=== PATIENT | male | born 1955 | race Caucasian/White ===

== ENCOUNTER 2021-03-19 06:31 | Emergency (ER) | payer SELFPAY ==
[2021-03-19] MEDS ORDERED: Orphenadrine 60 MG/2 ML Inj IM ONE (07:20)
[2021-03-19] MEDS ORDERED: Ketorolac 30 MG/ML SDV IM ONE (07:20)
[2021-03-19] MEDS ORDERED: Dexamethasone 4 MG/ML SDV IM ONE (07:20)
[2021-03-19] MEDS ORDERED: Sodium Chloride 0.9% 1,000 ML IV ONE (07:54)
[2021-03-19 08:34] LABS: ANION GAP 14.7 mEq/L (7-13)
--- NOTE | 2021-03-19 08:36 | EDM.PDOC ---
ED HPI GENERAL MEDICAL PROBLEM - General Chief Complaint: Back Pain or Injury Stated Complaint: [id number] PAIN IN BACK Time Seen by Provider: 03/19/21 07:15 Source of Information: Reports: Patient, Family, RN, RN Notes Reviewed History Limitations: Reports: No Limitations - History of Present Illness INITIAL COMMENTS - FREE TEXT/NARRATIVE: Patient is a 66-year-old male who presents to ER with complaint of mid to lower back pain/flank pain. Patient states he was moving some furniture earlier in the week. States he went to his chiropractor who told him he was too tight to b e able to do anything to help him. He was sent to the clinic from there. Patient was given a steroid, and told he was given something for pain at that time as well. Patient continues to have pain. Was started on a Medrol Dosepak and yesterday took 3 of the 6 pills that were required for that dose. Patient states he has had kidney stones in the past but states he had surgery and did not think he ever have kidney stones again. He states this does not feel the same as when he had kidney stones. Patient states approximately 1:00 this morning he did get up to use the restroom having quite a bit of pain, did notice that there was a discoloration of his urine at that time. Denies any nausea or vomiting. Admits to feeling hot/cold from time to time, but unsure if fever. Onset: Gradual Lower Back Pain Score (Numeric/FACES): 8 - Related Data Allergies Allergy/AdvReac Type Severity Reaction Status Date / Time No Known Allergies Allergy Verified 03/19/21 07:02 Past Medical History - Past Health History Medical/Surgical History: Denies Medical/Surgical History Social & Family History - Tobacco Use Tobacco Use Status *Q: Former Tobacco User Used Tobacco, but Quit: Yes Month/Year Tobacco Last Used: 35 Second Hand Smoke Exposure: No - Caffeine Use Caffeine Use: Reports: Coffee - Recreational Drug Use Recreational Drug Use: No ED ROS GENERAL - Review of Systems Review Of Systems: Comprehensive ROS is negative, except as noted in HPI. ED EXAM,LOWER BACK PAIN/INJURY - Physical Exam Exam: See Below Exam Limited By: No Limitations General Appearance: Alert, WD/WN, Moderate Distress Eye Exam: Bilateral Eye: EOMI, Normal Inspection Ears: Normal External Exam, Hearing Grossly Normal Nose: Normal Inspection Throat/Mouth: Normal Inspection, Normal Voice, No Airway Compromise Head: Atraumatic, Normocephalic Neck: Normal Inspection, Supple, Non-Tender, Full Range of Motion Respiratory/Chest: No Respiratory Distress, Lungs Clear, No Accessory Muscle Use, Chest Non-Tender, Decreased Breath Sounds Cardiovascular: Normal Peripheral Pulses, Regular Rate, Rhythm, No Edema, No Gallop, No JVD, No Murmur, No Rub GI/Abdominal: Normal Bowel Sounds, Soft, Non-Tender, No Organomegaly, No Distention, No Abnormal Bruit, No Mass, Pelvis Stable (Male) Exam: Deferred Rectal (Males) Exam: Deferred Back Exam: Normal Inspection, CVA Tenderness (L), CVA Tenderness (R), Decreased Range of Motion, Muscle Spasm Extremities: Normal Inspection, Normal Range of Motion, Non-Tender, No Pedal Edema, Normal Capillary Refill Neurological: Alert, Normal Mood/Affect, Normal Dorsiflexion, CN II-XII Intact, Normal Plantar Flexion, Normal Gait, Normal Reflexes, No Motor/Sensory Deficits, Oriented x 3 Psychiatric: Normal Affect, Normal Mood, Anxious Skin Exam: Warm, Dry, Intact, Normal Color, No Rash Lymphatic: No Adenopathy Course - Vital Signs Last Recorded V/S: Last Vital Signs Temp 97.6 F 03/19/21 06:57 Pulse 115 H 03/19/21 06:57 Resp 20 03/19/21 06:57 BP 150/93 H 03/19/21 06:57 Pulse Ox 98 03/19/21 06:57 - Orders/Labs/Meds Orders: Active Orders 24 hr Category Date Time Status CULTURE BLOOD [BC] Stat Lab 03/19/21 08:03 Received CULTURE BLOOD [BC] Stat Lab 03/19/21 08:10 Received CULTURE URINE [RM] Stat Lab 03/19/21 07:33 Results Blood Culture x2 Reflex Set [OM.PC] Stat Oth 03/19/21 07:51 Ordered Labs: Laboratory Tests 03/19/21 03/19/21 03/19/21 Range/Units 07:33 08:03 08:03 WBC 10.3 H (5.0-10.0) 10^3/uL RBC 4.69 (4.6-6.2) 10^6/uL Hgb 14.3 (14.0-18.0) g/dL Hct 42.0 (40.0-54.0) % MCV 89.6 (80-100) fL MCH 30.5 (27.0-34.0) pg MCHC 34.0 (33.0-35.0) g/dL Plt Count 191 (150-450) 10^3/uL Neut % (Auto) 80.9 H (42.2-75.2) % Lymph % (Auto) 8.6 L (20.5-50.1) % [place] % (Auto) 10.2 H (2-8) % Eos % (Auto) 0.2 L (1.0-3.0) % Baso % (Auto) 0.1 (0.0-1.0) % PT (9.0-12.0) SEC INR (0.9-1.2) Sodium 137 (136-145) mmol/L Potassium 3.7 (3.5-5.1) mmol/L Chloride 103 (98-107) mmol/L Carbon Dioxide 23 (21-32) mmol/L Anion Gap 14.7 H (7-13) mEq/L BUN 23 H (7-18) mg/dL Creatinine 1.49 H (0.70-1.30) mg/dL Est Cr Clr Drug Dosing 60.68 mL/min Estimated GFR (MDRD) 47 BUN/Creatinine Ratio 15.4 (No establ ref range) Glucose 112 H (70-99) mg/dL Lactic Acid (0.4-2.0) mmol/L Calcium 10.5 H (8.5-10.1) mg/dL Total Bilirubin 0.9 (0.2-1.0) mg/dL AST 13 L (15-37) U/L ALT 29 (16-63) U/L Alkaline Phosphatase 67 (46-116) U/L C-Reactive Protein 9.9 H (0.0-0.9) mg/dL Total Protein 7.1 (6.4-8.2) g/dL Albumin 3.0 L (3.4-5.0) g/dL Globulin 4.1 Albumin/Globulin Ratio 0.73 Urine Color Dark yellow (YELLOW) Urine Appearance Cloudy (CLEAR) Urine pH 5.5 (5.0-9.0) Ur Specific [place] 1.025 (1.005-1.030) Urine Protein 100 H (NEGATIVE) Urine Glucose (UA) Negative (NEGATIVE) Urine Ketones 40 H (NEGATIVE) Urine Occult Blood Large H (NEGATIVE) Urine Nitrite Negative (NEGATIVE) Urine Bilirubin Negative (NEGATIVE) Urine Urobilinogen 0.2 (0.2-1.0) mg/dL Ur Leukocyte Esterase Small H (NEGATIVE) Urine RBC Packed H /HPF Urine WBC 40-50 H (0-5/HPF) /HPF Ur Epithelial Cells Few (NOT SEEN) /HPF Urine Bacteria Moderate H (0-FEW/HPF) /HPF 03/19/21 03/19/21 Range/Units 08:03 10:47 WBC (5.0-10.0) 10^3/uL RBC (4.6-6.2) 10^6/uL Hgb (14.0-18.0) g/dL Hct (40.0-54.0) % MCV (80-100) fL MCH (27.0-34.0) pg MCHC (33.0-35.0) g/dL Plt Count (150-450) 10^3/uL Neut % (Auto) (42.2-75.2) % Lymph % (Auto) (20.5-50.1) % [place] % (Auto) (2-8) % Eos % (Auto) (1.0-3.0) % Baso % (Auto) (0.0-1.0) % PT 10.2 (9.0-12.0) SEC INR 1.0 (0.9-1.2) Sodium (136-145) mmol/L Potassium (3.5-5.1) mmol/L Chloride (98-107) mmol/L Carbon Dioxide (21-32) mmol/L Anion Gap (7-13) mEq/L BUN (7-18) mg/dL Creatinine (0.70-1.30) mg/dL Est Cr Clr Drug Dosing mL/min Estimated GFR (MDRD) BUN/Creatinine Ratio (No establ ref range) Glucose (70-99) mg/dL Lactic Acid 0.6 (0.4-2.0) mmol/L Calcium (8.5-10.1) mg/dL Total Bilirubin (0.2-1.0) mg/dL AST (15-37) U/L ALT (16-63) U/L Alkaline Phosphatase (46-116) U/L C-Reactive Protein (0.0-0.9) mg/dL Total Protein (6.4-8.2) g/dL Albumin (3.4-5.0) g/dL Globulin Albumin/Globulin Ratio Urine Color (YELLOW) Urine Appearance (CLEAR) Urine pH (5.0-9.0) Ur Specific [place] (1.005-1.030) Urine Protein (NEGATIVE) Urine Glucose (UA) (NEGATIVE) Urine Ketones (NEGATIVE) Urine Occult Blood (NEGATIVE) Urine Nitrite (NEGATIVE) Urine Bilirubin (NEGATIVE) Urine Urobilinogen (0.2-1.0) mg/dL Ur Leukocyte Esterase (NEGATIVE) Urine RBC /HPF Urine WBC (0-5/HPF) /HPF Ur Epithelial Cells (NOT SEEN) /HPF Urine Bacteria (0-FEW/HPF) /HPF Meds: Medications Discontinued Medications Generic Name Dose Route Start Last Admin Trade Name Freq PRN Reason Stop Dose Admin Dexamethasone 8 mg 03/19/21 07:20 03/19/21 07:29 Dexamethasone 4 Mg/Ml Sdv IM 03/19/21 07:21 8 mg ONETIME ONE Administration Sodium Chloride 1,000 mls @ 999 mls/hr 03/19/21 07:54 03/19/21 08:25 Normal Saline IV 03/19/21 08:54 999 mls/hr .BOLUS ONE Administration Ketorolac Tromethamine 30 mg 03/19/21 07:20 03/19/21 07:29 Ketorolac 30 Mg/Ml Sdv IM 03/19/21 07:21 30 mg ONETIME ONE Administration Orphenadrine Citrate 60 mg 03/19/21 07:20 03/19/21 07:29 Orphenadrine 60 Mg/2 Ml Inj IM 03/19/21 07:21 60 mg ONETIME ONE Administration - Radiology Interpretation Free Text/Narrative:: CT Abdomen/Pelvis wo contrast: See rad report - Re-Assessments/Exams Free Text/Narrative Re-Assessment/Exam: 03/19/21 08:38 IM Toradol, Norflex, dexamethasone given, patient states some improvement in pain. 03/19/21 10:55 Discussed patient case with Dr. Chin, urologist at [facility] in [place] who states the patient will need bilateral nephrostomy tubes. Patient case then discussed with Dr. Richard interventional radiologist who agreed to accept the patient for intervention. Patient refusing to transfer by ambulance due to lack of insurance. Patient informed that he will have to sign AGAINST MEDICAL ADVICE and go POV directly to [place]. Patient and state understanding. Departure - Departure Time of Disposition: 11:58 Disposition: DC/Tfer to [facility] 02 Condition: Fair Clinical Impression: Obstruction of kidney, Kidney stone - Discharge Information *PRESCRIPTION DRUG MONITORING PROGRAM REVIEWED*: No *COPY OF PRESCRIPTION DRUG MONITORING REPORT IN PATIENT IVONNE: No Referrals: PCP,Unobtain [Primary Care Provider] - Forms: ED Department Discharge, Interfacility Transfer [facility] Sepsis Event Note (ED) - Evaluation Sepsis Screening Result: No Definite Risk - My Orders Last 24 Hours: My Active Orders 03/19/21 07:33 CULTURE URINE [RM] Stat 03/19/21 07:51 Blood Culture x2 Reflex Set [OM.PC] Stat 03/19/21 08:03 CULTURE BLOOD [BC] Stat 03/19/21 08:10 CULTURE BLOOD [BC] Stat - Assessment/Plan Last 24 Hours: My Active Orders 03/19/21 07:33 CULTURE URINE [RM] Stat 03/19/21 07:51 Blood Culture x2 Reflex Set [OM.PC] Stat 03/19/21 08:03 CULTURE BLOOD [BC] Stat 03/19/21 08:10 CULTURE BLOOD [BC] Stat
--- NOTE | 2021-03-19 09:13 | CT ---
PROCEDURE INFORMATION: Exam: CT Abdomen And Pelvis Without Contrast Exam date and time: 03/19/2021 8:12 AM Age: 66 years old Clinical indication: Abdominal pain; Other: Back/ flank pain; Patient HX: HX kidney stones; Additional info: Back/flank pain, rbc in urine TECHNIQUE: Imaging protocol: Computed tomography of the abdomen and pelvis without contrast. Radiation optimization: All CT scans at this facility use at least one of these dose optimization techniques: automated exposure control; mA and/or kV adjustment per patient size (includes targeted exams where dose is matched to clinical indication); or iterative reconstruction. COMPARISON: CT RENAL STONE STUDY 06/15/2013 3:44 PM FINDINGS: Limitations: Evaluation of the solid and vascular structures is somewhat limited by lack of IV contrast. Lungs: There is mild atelectasis at the left lung base. Liver: The liver is now fatty in density. It appears otherwise grossly unremarkable. Gallbladder and bile ducts: Multiple stones are again present in the gallbladder. Pancreas: Grossly unremarkable. Spleen: Splenules are again present. The spleen itself appears grossly unremarkable. Adrenal glands: Grossly unremarkable. Kidneys and ureters: Both kidneys contain simple appearing cysts, measuring up to 3.0 cm on the right and 2.1 cm on the left. The right kidney is mildly atrophic with some thinning of the interpolar cortex. There is moderate to marked bilateral hydroureteronephrosis. Nonobstructing stones in the right renal collecting system measure up to 4 mm, and there is a cast of stones in the proximal to mid right ureter, with largest and distal most stone measuring 1.5 x 1.8 x 3.4 cm. Beyond this, the ureter is not dilated, and no additional ureteral calculus is identified. Multiple stones are present in the proximal to mid left ureter, largest and most distal measuring 1.6 x 1.3 x 1.0 cm. Beyond this, the ureter is not dilated, and no additional ureteral calculus is identified. Stomach and bowel: The unopacified small bowel is not significantly distended to suggest obstruction. The large bowel is grossly unremarkable in appearance. Appendix: The appendix appears normal. Intraperitoneal space: No free air or significant free fluid. Vasculature: The abdominal aorta is nonaneurysmal. Atherosclerotic vascular calcifications are again present. Lymph nodes: No gross pathologic lymphadenopathy. Urinary bladder: The urinary bladder now contains multiple stones, largest of which is on the right, adjacent to the right ureterovesical junction, measuring 2.5 x 2.6 x 1.9 cm. Additional stone is present at the expected level of the urethral orifice, and measures 2.1 x 1.3 x 1.0 cm. Reproductive: The prostate is increasingly enlarged, now measuring 7.8 x 7.8 cm (previously 6.6 x 6.0 cm). Bones/joints: Degenerative changes again involve the spine and hips. Soft tissues: Small fat containing umbilical and bilateral inguinal hernias are again present. There is a lobulated soft tissue mass in the right mid abdomen which has enlarged from approximately 5.3 x 3.3 x 3.7 cm on the prior study to 7.8 x 5.0 x 5.1 cm presently (images 3:52, 2:99). IMPRESSION: 1. Lobulated soft tissue lesion in the right mesentery, slowly growing as compared with 06/15/13. This is nonspecific and could represent a vascular lesion, retractile mesenteritis, lymphadenopathy or other pathology such as metastasis. Recommend follow-up with a contrast-enhanced exam to exclude vascular lesion, and consider biopsy and/or PET. 2. Moderate to marked bilateral hydroureteronephrosis with bilateral renal and ureteral stones, with largest ureteral stones measuring up to 3.4 cm on the right and 1.6 cm on the left, beyond which the ureters are not dilated. 3. Stones in the urinary bladder as described. 4. Increasing prostatomegaly. 5. Persistent cholelithiasis. 6. New hepatic steatosis. COMMENTS: Consistent with the [employer]'s Incidental Findings Committee white paper (J Am Stewart Radiol 2018): Any incidental renal lesion less than 1 cm or classified as too small to characterize, or any incidental cystic renal lesion characterized as simple-appearing, is likely benign. No follow-up imaging is recommended for these lesions per consensus recommendations based on imaging criteria.
== END 2021-03-19 12:00 ==
LOC: DL.ED 06:31
DX: N20.0 Calculus of kidney (principal); N28.89 Other specified disorders of kidney and ureter; Z87.891 Personal history of nicotine dependence
CPT/HCPCS: 36415; 74176; 80053; 81001; 83605; 85025; 85610; 86140; 87040; 87086; 96372; 99284; 99285; J1100; J1885; J2360; J7030

== ENCOUNTER 2021-04-16 17:41 | Emergency (ER) | payer BC ==
--- NOTE | 2021-04-16 18:08 | EDM.PDOC ---
<Omar Schaeffer - Last Filed: 04/16/21 19:09> ED HPI GENERAL MEDICAL PROBLEM - General Stated Complaint: POST SURGERY PROBLEMS Time Seen by Provider: 04/16/21 17:55 Source of Information: Reports: Patient History Limitations: Reports: No Limitations - History of Present Illness INITIAL COMMENTS - FREE TEXT/NARRATIVE: This 66 yo male patient reports to the ED with diffuse right sided back pain and the urge to urinate. The patient recently had surgery to remove numerous kidney stones through [facility] in [place]. The patient was released from [place] today at noon. The patient reports he has been drinking water as directed (1 bottle of water every hour), but the patient has not had any fluid coming out of his nephrostomy tubes. The patient reports the tube on the left side has not ever been draining, but the right tube has been draining until today. The patient reports they did surgery on his right side and removed one large stone. The patient reports the urge to both urinate and have a bowel movement. The patient has not taken any of the pain medications as prescribed. The patient reports increased pain and a flushed feeling with the surges of pain. Onset: Today Duration: Constant Location: Reports: Abdomen, Back Quality: Reports: Ache, Sharp Severity: Severe Improves with: Reports: None Worsens with: Reports: None Context: Reports: Other Associated Symptoms: Reports: No Other Symptoms Right Lower Flank Pain Score (Numeric/FACES): 8 - Related Data Allergies Allergy/AdvReac Type Severity Reaction Status Date / Time No Known Allergies Allergy Verified 04/18/21 15:52 Home Meds: Home Meds amLODIPine [Norvasc] 10 mg PO DAILY 04/16/21 [History] Cefdinir [Omnicef] 300 mg PO BID 7 Days #14 cap 04/17/21 [Rx] Phenazopyridine HCl [Pyridium] 200 mg PO DAILY PRN #21 tablet 04/17/21 [Rx] Tamsulosin [Tamsulosin 24 Hr] 0.4 mg PO DAILY #14 cap.er 04/17/21 [Rx] Past Medical History - Past Health History Medical/Surgical History: Denies Medical/Surgical History Social & Family History - Caffeine Use Caffeine Use: Reports: Coffee ED ROS GENERAL - Review of Systems Review Of Systems: Comprehensive ROS is negative, except as noted in HPI. ED EXAM, RENAL/ - Physical Exam Exam: See Below Exam Limited By: No Limitations General Appearance: Alert, WD/WN, Moderate Distress Eye Exam: Bilateral Eye: EOMI, Normal Inspection, PERRL Ears: Normal External Exam, Normal Canal, Hearing Grossly Normal, Normal TMs Nose: Normal Inspection, Normal Mucosa, No Blood Throat/Mouth: Normal Inspection, Normal Lips, Normal Teeth, Normal Gums, Normal Oropharynx, Normal Voice, No Airway Compromise Head: Atraumatic, Normocephalic Neck: Normal Inspection, Supple, Non-Tender, Full Range of Motion Respiratory/Chest: No Respiratory Distress, Lungs Clear, Normal Breath Sounds, No Accessory Muscle Use, Chest Non-Tender Cardiovascular: Normal Peripheral Pulses, Regular Rate, Rhythm, No Edema, No Gallop, No JVD, No Murmur, No Rub GI/Abdominal: Normal Bowel Sounds, Tender (diffuse) (Male) Exam: Deferred Rectal (Males) Exam: Deferred Back Exam: Normal Inspection, Full Range of Motion, NT Extremities: Normal Inspection, Normal Range of Motion, Non-Tender, Normal Capillary Refill, No Pedal Edema Neurological: Alert, Oriented, CN II-XII Intact, Normal Cognition, Normal Gait, Normal Reflexes, No Motor/Sensory Deficits Psychiatric: Normal Affect, Normal Mood Skin Exam: Warm, Dry, Intact, Normal Color, No Rash Lymphatic: No Adenopathy Course - Re-Assessments/Exams Free Text/Narrative Re-Assessment/Exam: 04/16/21 18:10 During the assessment, the patient's right nephrostomy tube was unwrapped. With no drainage, the tube was flushed with an immediate return of blood tinged fluid. The patient continued to report discomfort. Departure - Departure Disposition: Home, Self-Care 01 Clinical Impression: Kidney stone, Nephrostomy status, Acute urinary retention Hematuria Qualifiers: Hematuria type: gross Qualified Code(s): R31.0 - Gross hematuria UTI (urinary tract infection) Qualifiers: Urinary tract infection type: site unspecified Hematuria presence: with hematuria Qualified Code(s): N39.0 - Urinary tract infection, site not specified; R31.9 - Hematuria, unspecified Constipation Qualifiers: Constipation type: slow transit constipation Qualified Code(s): K59.01 - Slow transit constipation - Discharge Information Instructions: Indwelling Urinary Catheter Care, Adult, Urinary Tract Infection, Adult, [id number] Referrals: PCP,None [Primary Care Provider] - Forms: ED Department Discharge Additional Instructions: Follow up in ER tomorrow am for recheck push fluids urgent follow up severe pain, fever or vomiting senokot one tablet twice daily continue home medications oxycodone APAP 5/[address] Chni <Karen Jacobson - Last Filed: 04/18/21 20:56> Course - Vital Signs Last Recorded V/S: Last Vital Signs Temp 96.9 F 04/16/21 17:50 Pulse 130 H 04/16/21 17:50 Resp 28 H 04/16/21 17:50 BP 130/78 04/16/21 17:50 Pulse Ox 95 04/16/21 17:50 - Orders/Labs/Meds Labs: Laboratory Tests 04/16/21 04/16/21 04/16/21 Range/Units 20:29 20:40 20:40 WBC 18.6 H (5.0-10.0) 10^3/uL RBC 4.74 (4.6-6.2) 10^6/uL Hgb 14.1 (14.0-18.0) g/dL Hct 40.9 (40.0-54.0) % MCV 86.3 D (80-100) fL MCH 29.7 (27.0-34.0) pg MCHC 34.5 (33.0-35.0) g/dL Plt Count 396 D (150-450) 10^3/uL Neut % (Auto) 89.7 H (42.2-75.2) % Lymph % (Auto) 2.9 L (20.5-50.1) % [place] % (Auto) 7.3 (2-8) % Eos % (Auto) 0.0 L (1.0-3.0) % Baso % (Auto) 0.1 (0.0-1.0) % Sodium 134 L (136-145) mmol/L Potassium 3.6 (3.5-5.1) mmol/L Chloride 97 L (98-107) mmol/L Carbon Dioxide 20 L (21-32) mmol/L Anion Gap 20.6 H (7-13) mEq/L BUN 25 H (7-18) mg/dL Creatinine 2.59 H (0.70-1.30) mg/dL Est Cr Clr Drug Dosing 35.38 mL/min Estimated GFR (MDRD) 25 BUN/Creatinine Ratio 9.7 (No establ ref range) Glucose 200 H (70-99) mg/dL Lactic Acid (0.4-2.0) mmol/L Calcium 11.7 H (8.5-10.1) mg/dL Total Bilirubin 0.6 (0.2-1.0) mg/dL AST 14 L (15-37) U/L ALT 21 (16-63) U/L Alkaline Phosphatase 77 (46-116) U/L Total Protein 8.0 (6.4-8.2) g/dL Albumin 3.2 L (3.4-5.0) g/dL Globulin 4.8 Albumin/Globulin Ratio 0.67 Urine Color [place] (YELLOW) Urine Appearance Turbid (CLEAR) Urine pH 7.0 (5.0-9.0) Ur Specific [place] 1.020 (1.005-1.030) Urine Protein >=300 H (NEGATIVE) Urine Glucose (UA) Negative (NEGATIVE) Urine Ketones Negative (NEGATIVE) Urine Occult Blood Large H (NEGATIVE) Urine Nitrite Negative (NEGATIVE) Urine Bilirubin Negative (NEGATIVE) Urine Urobilinogen 0.2 (0.2-1.0) mg/dL Ur Leukocyte Esterase Small H (NEGATIVE) Urine RBC >100 H /HPF Urine WBC >100 H (0-5/HPF) /HPF Ur Epithelial Cells Few (NOT SEEN) /HPF Amorphous Sediment Moderate (NOT SEEN) /HPF Urine Bacteria Many H (0-FEW/HPF) /HPF Urine Mucus Rare (NOT SEEN) /LPF 04/16/21 Range/Units 21:51 WBC (5.0-10.0) 10^3/uL RBC (4.6-6.2) 10^6/uL Hgb (14.0-18.0) g/dL Hct (40.0-54.0) % MCV (80-100) fL MCH (27.0-34.0) pg MCHC (33.0-35.0) g/dL Plt Count (150-450) 10^3/uL Neut % (Auto) (42.2-75.2) % Lymph % (Auto) (20.5-50.1) % [place] % (Auto) (2-8) % Eos % (Auto) (1.0-3.0) % Baso % (Auto) (0.0-1.0) % Sodium (136-145) mmol/L Potassium (3.5-5.1) mmol/L Chloride (98-107) mmol/L Carbon Dioxide (21-32) mmol/L Anion Gap (7-13) mEq/L BUN (7-18) mg/dL Creatinine (0.70-1.30) mg/dL Est Cr Clr Drug Dosing mL/min Estimated GFR (MDRD) BUN/Creatinine Ratio (No establ ref range) Glucose (70-99) mg/dL Lactic Acid 1.8 (0.4-2.0) mmol/L Calcium (8.5-10.1) mg/dL Total Bilirubin (0.2-1.0) mg/dL AST (15-37) U/L ALT (16-63) U/L Alkaline Phosphatase (46-116) U/L Total Protein (6.4-8.2) g/dL Albumin (3.4-5.0) g/dL Globulin Albumin/Globulin Ratio Urine Color (YELLOW) Urine Appearance (CLEAR) Urine pH (5.0-9.0) Ur Specific [place] (1.005-1.030) Urine Protein (NEGATIVE) Urine Glucose (UA) (NEGATIVE) Urine Ketones (NEGATIVE) Urine Occult Blood (NEGATIVE) Urine Nitrite (NEGATIVE) Urine Bilirubin (NEGATIVE) Urine Urobilinogen (0.2-1.0) mg/dL Ur Leukocyte Esterase (NEGATIVE) Urine RBC /HPF Urine WBC (0-5/HPF) /HPF Ur Epithelial Cells (NOT SEEN) /HPF Amorphous Sediment (NOT SEEN) /HPF Urine Bacteria (0-FEW/HPF) /HPF Urine Mucus (NOT SEEN) /LPF Meds: Medications Discontinued Medications Generic Name Dose Route Start Last Admin Trade Name Freq PRN Reason Stop Dose Admin Hydromorphone HCl 1 mg 04/16/21 19:17 04/16/21 19:26 Hydromorphone 1 Mg/Ml Syringe IVPUSH 04/16/21 19:18 1 mg ONETIME ONE Administration Ceftriaxone Sodium 2 gm/ 50 mls @ 100 mls/hr 04/16/21 21:44 04/16/21 22:03 Sodium Chloride IV 04/16/21 22:13 100 mls/hr ONETIME ONE Administration Ondansetron HCl 4 mg 04/16/21 19:17 04/16/21 19:26 Ondansetron 4 Mg/2 Ml Sdv IVPUSH 04/16/21 19:18 4 mg ONETIME ONE Administration - Re-Assessments/Exams Free Text/Narrative Re-Assessment/Exam: Denney Catheter placed due to inability to void with bladder distension, 800ml dark tea colored urine. Improvement in voiding urgency and pain. Right neph rostomy draining bloody urine. TC Dr Chin. [facility] urology. No bed availability for tx. Recommend Rocephin tonight and follow up ED in am with repeat lab, CBC BMP. Patient agreeable. Home with catheter. Instructed to follow up if worsening symptoms of pain fever or tubes not draining. Catheter care reviewed by RN. Encouraged to utilize pain medication and to take with senokot to alleviate complications with constipation. Continue to push fluids. Departure - Departure Time of Disposition: 22:23 Condition: Fair - Discharge Information *PRESCRIPTION DRUG MONITORING PROGRAM REVIEWED*: No *COPY OF PRESCRIPTION DRUG MONITORING REPORT IN PATIENT IVONNE: No
[2021-04-16] MEDS: Ondansetron 4 MG/2 ML SDV IVPUSH ONE (19:26)
[2021-04-16] MEDS: HYDROmorphone 1 MG/ML Syringe IVPUSH ONE (19:26)
--- NOTE | 2021-04-16 19:37 | CT ---
PROCEDURE INFORMATION: Exam: CT Abdomen And Pelvis Without Contrast Exam date and time: 04/16/2021 6:53 PM Age: 66 years old Clinical indication: Prior surgery; Surgery date: Post-operative (0-2 days); Surgery type: Nephrostomy tubes put in yesterday; Patient HX: On pain medications, no stool softeners, no recent bowel movements; Additional info: Nephrostomy tubes with little output TECHNIQUE: Imaging protocol: Computed tomography of the abdomen and pelvis without contrast. Radiation optimization: All CT scans at this facility use at least one of these dose optimization techniques: automated exposure control; mA and/or kV adjustment per patient size (includes targeted exams where dose is matched to clinical indication); or iterative reconstruction. COMPARISON: CT Abdomen Pelvis wo Cont 03/19/2021 8:12 AM FINDINGS: Lungs: The visualized lung bases are clear. Liver: The liver is normal. Gallbladder and bile ducts: Multiple gallstones are identified. Pancreas: The pancreas is normal. Spleen: The spleen is normal. Adrenal glands: The adrenal glands are normal. Kidneys and ureters: Status post right nephrostomy tube placement. Right nephrostomy tube appears to be appropriately positioned in the renal pelvis. There is air in the collecting system. There is decreased right hydronephrosis. There is moderate perirenal hematoma on the right anteriorly. Blood product surrounds the previously identified right right anterior cyst. There is a spherical area of increased density in the lower pole of the right kidney. This measures 6 cm. This may reflect hematoma in the lower pole of the right kidney. No cystic lesion is seen in this area previously. There multiple calcifications in the right renal pelvis . There is a large amount of calcific material in the proximal right ureter. Several small calculi of migrated to the distal right ureter just above the UVJ. Status post left nephrostomy tube placement. There is persistent though decreased moderate left hydronephrosis. Very little perirenal stranding on the left. Large amount of calcific material in the proximal left ureter is unchanged. The distal left ureter is relatively decompressed. Stomach and bowel: Non-specific/nonobstructive intestinal gas pattern. No specific small bowel or colonic abnormality is identified. The upper GI tract is normal. Appendix: A normal appendix is identified. 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 Vasculature: There is no aortic aneurysm. Lymph nodes: There is no adenopathy. Urinary bladder: The bladder is moderately distended. Multiple bladder calculi present largest measuring 26 mm. Pattern stable. Reproductive: Prostate is severely enlarged. There is prostatic calcification. Bones/joints: No acute bony findings are identified. Soft tissues: There is no soft tissue abnormality seen. IMPRESSION: 1. Status post bilateral nephrostomy tube placement. Right hydronephrosis is essentially resolved. There is moderate though decreased left hydronephrosis. 2. There multiple renal calculi identified bilaterally there is extensive calcific material in the ureters. 3. There is air in the right collecting system . There is a moderate perirenal hematoma about the right kidney. There is a new spherical intermediate density lesion in the lower pole of the right kidney measuring up to 6 cm, likely hematoma. Correlate with any history of percutaneous stone extraction. Several proximal right ureteral calculi have migrated to the distal right ureter. 4. The urinary bladder is distended. There are multiple bladder calculi seen. 5. Lobular right-sided mesenteric mass will require further evaluation. This appears to be slowly grown over time, question low-grade malignancy. Consider PET-CT. Consider biopsy/excision. COMMENTS: Consistent with the [employer]'s Incidental Findings Committee white paper (J Am Stewart Radiol 2018): Any incidental renal lesion less than 1 cm or classified as too small to characterize, or any incidental cystic renal lesion characterized as simple-appearing, is likely benign. No follow-up imaging is recommended for these lesions per consensus recommendations based on imaging criteria.
[2021-04-16 21:04] LABS: ANION GAP 20.6 mEq/L (7-13)
[2021-04-16] MEDS: cefTRIAXone 2 GM in Sodium Chloride 0.9% 50 ML IV ONE (22:03)
== END 2021-04-16 22:47 | disposition home or self-care (01) ==
LOC: DL.ED 17:41
DX: N13.2 Hydronephrosis with renal and ureteral calculous obstruction (principal); N39.0 Urinary tract infection, site not specified; R33.9 Retention of urine, unspecified; K59.01 Slow transit constipation; R31.0 Gross hematuria; Z93.6 Other artificial openings of urinary tract status
CPT/HCPCS: 36415; 51702; 74176; 80053; 81001; 83605; 85025; 87040; 87086; 96365; 96375; 99284; J0696; J1170; J2405

== ENCOUNTER 2021-04-17 08:26 | Emergency (ER) | payer BC ==
[2021-04-17] MEDS ORDERED: cefTRIAXone 1 GM in Sodium Chloride 0.9% 50 ML IV ONE (08:30)
[2021-04-17] MEDS ORDERED: cefTRIAXone 1 GM Vial ONE (08:41)
[2021-04-17] MEDS ORDERED: Lidocaine 1% 30 ML SDV ONE (08:42)
[2021-04-17 08:58] LABS: ANION GAP 16.4 mEq/L (7-13)
--- NOTE | 2021-04-17 10:43 | EDM.PDOC ---
ED HPI GENERAL MEDICAL PROBLEM - General Chief Complaint: Genitourinary Problem Stated Complaint: POST SURGERY ISSUES Time Seen by Provider: 04/17/21 08:30 - History of Present Illness INITIAL COMMENTS - FREE TEXT/NARRATIVE: Ramin is a 66 year old man who presents for recheck of his UTI. He has obstructing nephrolithiasis, and recently had nephrostomy tubes placed. He was diagnosed yesterday with a UTI, and given IV ceftriaxone. This morning he is feeling better, but rubi catheter came out on its own this morning. reports no further fevers - Related Data Allergies Allergy/AdvReac Type Severity Reaction Status Date / Time No Known Allergies Allergy Verified 04/17/21 18:40 Home Meds: Home Meds amLODIPine [Norvasc] 10 mg PO DAILY 04/16/21 [History] Cefdinir [Omnicef] 300 mg PO BID 7 Days #14 cap 04/17/21 [Rx] Phenazopyridine HCl [Pyridium] 200 mg PO DAILY PRN #21 tablet 04/17/21 [Rx] Tamsulosin [Tamsulosin 24 Hr] 0.4 mg PO DAILY #14 cap.er 04/17/21 [Rx] Past Medical History - Past Health History Medical/Surgical History: Denies Medical/Surgical History Cardiovascular History: Reports: Hypertension Genitourinary History: Reports: Hydronephrosis, Renal Calculus - Past Surgical History Male Surgical History: Reports: Renal Calculus, Other (See Below) Other Male Surgeries/Procedures: BL nephrostomy tubes Social & Family History - Tobacco Use Tobacco Use Status *Q: Never Tobacco User Second Hand Smoke Exposure: No - Caffeine Use Caffeine Use: Reports: None - Recreational Drug Use Recreational Drug Use: No ED ROS GENERAL - Review of Systems Review Of Systems: Comprehensive ROS is negative, except as noted in HPI. ED EXAM, RENAL/ - Physical Exam Exam: See Below Text/Narrative:: General: Ramin is a 66-year-old man in no acute distress Oropharynx is clear, mucous membranes are moist Heart: Regular rate and rhythm, no murmurs Lungs: Clear to auscultation throughout Abdomen: Soft, nontender to palpation, nephrostomy tubes are in place, blood- tinged fluid is present in nephrostomy bag Peripheral IV was started, he was given 1 g of IV ceftriaxone As noted, both white count and creatinine have improved significantly from yesterday I discussed his case with Dr. Chin in urology, who was the surgeon performing his procedure the other day. He was encouraged by his progress, and we formulated the treatment plan for him while he is awaiting further consultation in [place] with Dr. Chin Course - Vital Signs Last Recorded V/S: Last Vital Signs Temp 98.2 F 04/17/21 08:34 Pulse 123 H 04/17/21 08:34 Resp 20 04/17/21 08:34 BP 138/82 04/17/21 08:34 Pulse Ox 97 04/17/21 08:34 - Orders/Labs/Meds Labs: Laboratory Tests 04/17/21 04/17/21 Range/Units 08:39 08:39 WBC 10.6 H (5.0-10.0) 10^3/uL RBC 4.38 L (4.6-6.2) 10^6/uL Hgb 13.0 L (14.0-18.0) g/dL Hct 38.3 L (40.0-54.0) % MCV 87.4 (80-100) fL MCH 29.7 (27.0-34.0) pg MCHC 33.9 (33.0-35.0) g/dL Plt Count 337 (150-450) 10^3/uL Neut % (Auto) 80.9 H (42.2-75.2) % Lymph % (Auto) 9.0 L (20.5-50.1) % Mobile % (Auto) 9.7 H (2-8) % Eos % (Auto) 0.3 L (1.0-3.0) % Baso % (Auto) 0.1 (0.0-1.0) % Sodium 138 (136-145) mmol/L Potassium 3.4 L (3.5-5.1) mmol/L Chloride 101 (98-107) mmol/L Carbon Dioxide 24 (21-32) mmol/L Anion Gap 16.4 H (7-13) mEq/L BUN 24 H (7-18) mg/dL Creatinine 2.16 H (0.70-1.30) mg/dL Est Cr Clr Drug Dosing 42.42 mL/min Estimated GFR (MDRD) 31 Glucose 129 H (70-99) mg/dL Calcium 11.5 H (8.5-10.1) mg/dL Meds: Medications Discontinued Medications Generic Name Dose Route Start Last Admin Trade Name Yuliana PRN Reason Stop Dose Admin Ceftriaxone Sodium Confirm 04/17/21 08:41 04/17/21 08:54 Ceftriaxone 1 Gm Vial Administered 04/17/21 08:42 Not Given Dose 1 gm .ROUTE .STK-MED ONE Ceftriaxone Sodium 1 gm/ 50 mls @ 100 mls/hr 04/17/21 08:30 04/17/21 08:46 Sodium Chloride IV 04/17/21 08:59 100 mls/hr ONETIME ONE Administration Lidocaine HCl Confirm 04/17/21 08:42 04/17/21 08:45 Lidocaine 1% 30 Ml Sdv Administered 04/17/21 08:43 30 ml Dose Administration 30 ml .ROUTE .STK-MED ONE Departure - Departure Time of Disposition: 10:39 Disposition: Home, Self-Care 01 Clinical Impression: UTI (urinary tract infection), Nephrostomy status - Discharge Information *PRESCRIPTION DRUG MONITORING PROGRAM REVIEWED*: Not Applicable *COPY OF PRESCRIPTION DRUG MONITORING REPORT IN PATIENT IVONNE: Not Applicable Prescriptions: Cefdinir [Omnicef] 300 mg PO BID 7 Days #14 cap Referrals: PCP,None [Primary Care Provider] - Forms: ED Department Discharge Additional Instructions: You need to have a renal function panel rechecked in two days per Dr. Chin in Urology Sepsis Event Note (ED) - Evaluation Sepsis Screening Result: No Definite Risk - Problem List & Annotations (1) Hematuria SNOMED Code(s): 10258193 Code(s): R31.9 - HEMATURIA, UNSPECIFIED Status: Acute (2) Nephrostomy status SNOMED Code(s): 623804680, 108105917 Code(s): Z93.6 - OTHER ARTIFICIAL OPENINGS OF URINARY TRACT STATUS Status: Acute (3) UTI (urinary tract infection) SNOMED Code(s): 35564220 Code(s): N39.0 - URINARY TRACT INFECTION, SITE NOT SPECIFIED Status: Acute - Assessment/Plan Assessment:: 1. Acute UTI 2. Obstructing nephrolithiasis with nephrostomy tube placement Plan: 1. Omnicef 300mg BID times 7 days 2. Since Ramin was able to urinate 200 mL without difficulty, will leave rubi out at this time. Ramin understands he is still at risk for urinary retention, and will return for rubi replacement if he doesn't continue to urinate normally
== END 2021-04-17 10:58 | disposition home or self-care (01) ==
LOC: DL.ED 08:26
DX: N39.0 Urinary tract infection, site not specified (principal); I10 Essential (primary) hypertension; Z93.6 Other artificial openings of urinary tract status
CPT/HCPCS: 36415; 80048; 85025; 96365; 99283-25; J0696

== ENCOUNTER 2021-04-17 18:25 | Emergency (ER) | payer BC ==
[2021-04-17] MEDS ORDERED: Phenazopyridine 95 MG Tab PO ONE (18:26)
[2021-04-17] MEDS ORDERED: Tamsulosin 0.4 MG Cap.ER PO ONE (18:26)
--- NOTE | 2021-04-17 18:55 | EDM.PDOC ---
ED HPI GENERAL MEDICAL PROBLEM - General Chief Complaint: Genitourinary Problem Stated Complaint: CATHITOR PUT BACK IN Time Seen by Provider: 04/17/21 18:30 - History of Present Illness INITIAL COMMENTS - FREE TEXT/NARRATIVE: Ramin is a 66 year old man who returns to the ED with an inability to urinate. He has severe nephrolithiasis of both kidneys, and had nephrostomy tubes placed recently. He was seen this morning in the ED for repeat IV antibiotics secondary to a UTI, rubi catheter had come out. Since he was able to urinate this morning, he elected to leave the catheter out. Now this evening, he again cannot urinate. - Related Data Allergies Allergy/AdvReac Type Severity Reaction Status Date / Time No Known Allergies Allergy Verified 04/17/21 18:40 Home Meds: Home Meds amLODIPine [Norvasc] 10 mg PO DAILY 04/16/21 [History] Cefdinir [Omnicef] 300 mg PO BID 7 Days #14 cap 04/17/21 [Rx] Phenazopyridine HCl [Pyridium] 200 mg PO DAILY PRN #21 tablet 04/17/21 [Rx] Tamsulosin [Tamsulosin 24 Hr] 0.4 mg PO DAILY #14 cap.er 04/17/21 [Rx] Past Medical History - Past Health History Medical/Surgical History: Denies Medical/Surgical History Cardiovascular History: Reports: Hypertension Genitourinary History: Reports: Hydronephrosis, Renal Calculus - Past Surgical History Male Surgical History: Reports: Renal Calculus, Other (See Below) Other Male Surgeries/Procedures: BL nephrostomy tubes Social & Family History - Family History Family Medical History: No Pertinent Family History - Tobacco Use Tobacco Use Status *Q: Never Tobacco User - Caffeine Use Caffeine Use: Reports: None - Recreational Drug Use Recreational Drug Use: No ED ROS GENERAL - Review of Systems Review Of Systems: Comprehensive ROS is negative, except as noted in HPI. ED EXAM, RENAL/ - Physical Exam Exam: See Below Text/Narrative:: General: Ramin is a pleasant 66 year old man in no acute distress Oropharynx is clear, mucous membranes are moist Rubi catheter placed with great discomfort, large amount of clear urine obtained after placement Course - Vital Signs Last Recorded V/S: Last Vital Signs Temp 97.9 F 04/17/21 18:41 Pulse 126 H 04/17/21 18:41 Resp 16 04/17/21 18:41 BP 132/89 04/17/21 18:41 Pulse Ox 97 04/17/21 18:41 - Orders/Labs/Meds Orders: Active Orders 24 hr Category Date Time Status Insert Rubi Catheter [Insert Urinary Catheter] [OM.PC] Care 04/17/21 18:45 Ordered Q24H Meds: Medications Discontinued Medications Generic Name Dose Route Start Last Admin Trade Name Freq PRN Reason Stop Dose Admin Phenazopyridine HCl Confirm 04/17/21 19:07 Phenazopyridine 95 Mg Tab Administered 04/17/21 19:08 Dose 190 mg .ROUTE .STK-MED ONE Tamsulosin HCl Confirm 04/17/21 19:06 Tamsulosin 0.4 Mg Cap.Er Administered 04/17/21 19:07 Dose 0.4 mg .ROUTE .STK-MED ONE Departure - Departure Time of Disposition: 18:50 Disposition: Home, Self-Care 01 Clinical Impression: Nephrostomy status, UTI (urinary tract infection), Kidney stone - Discharge Information *PRESCRIPTION DRUG MONITORING PROGRAM REVIEWED*: Not Applicable *COPY OF PRESCRIPTION DRUG MONITORING REPORT IN PATIENT IVONNE: Not Applicable Prescriptions: Tamsulosin [Tamsulosin 24 Hr] 0.4 mg PO DAILY #14 cap.er Phenazopyridine HCl [Pyridium] 200 mg PO DAILY PRN #21 tablet PRN Reason: Dysuria Forms: ED Department Discharge Additional Instructions: 1. Add 10 scoops of MiraLAX to a 32 ounce bottle of Gatorade and drink at all at one sitting. This should help clean you out. You can repeat this is often as you need to until you feel better. 2. Take the Flomax at night before you go to bed to help with the spasm of your ureters and bladder 3. You may take the Pyridium sparingly to help with bladder spasm. Try not to take it any more than 1 time per day. Sepsis Event Note (ED) - Evaluation Sepsis Screening Result: No Definite Risk - Problem List & Annotations (1) UTI (urinary tract infection) SNOMED Code(s): 60935505 Code(s): N39.0 - URINARY TRACT INFECTION, SITE NOT SPECIFIED Status: Acute (2) Nephrostomy status SNOMED Code(s): 820607878, 131935306 Code(s): Z93.6 - OTHER ARTIFICIAL OPENINGS OF URINARY TRACT STATUS Status: Acute - My Orders Last 24 Hours: My Active Orders 04/17/21 18:45 Insert Rubi Catheter [Insert Urinary Catheter] [OM.PC] Q24H - Assessment/Plan Last 24 Hours: My Active Orders 04/17/21 18:45 Insert Rubi Catheter [Insert Urinary Catheter] [OM.PC] Q24H Assessment:: 1. 66 year old man with obstructing nephrolithiasis, with recent nephrostomy tube placement 2. Aucte UTI 3. known prostatic hypertrophy Plan: 1. He will keep rubi catheter in if possible 2. flomax 0.4 mg daily, to see if we can lessen both ureter and prostate spasm 3. Continue omnicef as prescribed this morning 4. I gave them a regimen to follow at home using miralax to get him cleaned out, as constipation is also complicating matters for him
[2021-04-17] MEDS ORDERED: Tamsulosin 0.4 MG Cap.ER ONE (19:06)
[2021-04-17] MEDS ORDERED: Phenazopyridine 95 MG Tab ONE (19:07)
== END 2021-04-17 19:19 | disposition home or self-care (01) ==
LOC: DL.ED 18:25
DX: N20.0 Calculus of kidney (principal); N39.0 Urinary tract infection, site not specified; Z93.6 Other artificial openings of urinary tract status; I10 Essential (primary) hypertension
CPT/HCPCS: 51702; 99283; 99283-25; A9270-GY

== ENCOUNTER 2021-04-18 14:01 | Emergency (ER) | payer BC ==
[2021-04-18] MEDS ORDERED: Lactated Ringers 1,000 ML IV ONE (15:56)
[2021-04-18] MEDS ORDERED: HYDROmorphone 1 MG/ML Syringe IVPUSH ONE (15:57)
[2021-04-18] MEDS ORDERED: cefTRIAXone 1 GM in Sodium Chloride 0.9% 50 ML IV ONE (15:57)
[2021-04-18] MEDS ORDERED: Sodium Chloride 0.9% 1,000 ML IV ONE (16:21)
[2021-04-18] MEDS ORDERED: Lidocaine 2% Jelly 10 ML Urojet MUCMEM ONE (16:59)
[2021-04-18] MEDS ORDERED: Lidocaine 2% Jelly 10 ML Urojet ONE (17:00)
--- NOTE | 2021-04-18 19:01 | CT ---
PROCEDURE INFORMATION: Exam: CT Abdomen And Pelvis Without Contrast Exam date and time: 04/18/2021 5:47 PM Age: 66 years old Clinical indication: Other: Gfr 32; Additional info: Urinary obstruction, concern for pyelonephritis TECHNIQUE: Imaging protocol: Computed tomography of the abdomen and pelvis without contrast. Radiation optimization: All CT scans at this facility use at least one of these dose optimization techniques: automated exposure control; mA and/or kV adjustment per patient size (includes targeted exams where dose is matched to clinical indication); or iterative reconstruction. COMPARISON: CT Abdomen Pelvis wo Cont 04/16/2021 6:53 PM FINDINGS: Lungs: The visualized lung bases are clear. Liver: The liver is normal. Gallbladder and bile ducts: Multiple gallstones are identified. Pancreas: The pancreas is normal. Spleen: The spleen is normal. Adrenal glands: The adrenal glands are normal. Kidneys and ureters: Status post bilateral nephrostomy tube placement. No right hydronephrosis. The high density focus identified in the lower pole of the right kidney on the prior study is now more clearly seen as a subcapsular hematoma measuring up to 20 mm in thickness. No progression. If anything this collection is smaller. There is a small amount of perirenal hematoma anteriorly and in the renal hilum which has decreased. There are cysts in the right kidney. There is no air in the right collecting system. There multiple small intrarenal calculi , unchanged. Persistent moderate left hydronephrosis despite nephrostomy tube placement. Nephrostomy tube appears to be coiled appropriately in the left renal pelvis. Correlate with the nephrostomy tube output. Consider nephrostogram. There multiple small intrarenal calculi in the left kidney. Large volume proximal right and left ureteral calcifications remain stable. Small distal right ureteral calculi seen previously appear to have cleared into the bladder. Stomach and bowel: Non-specific/nonobstructive intestinal gas pattern. No specific small bowel or colonic abnormality is identified. The upper GI tract is normal. Appendix: A normal appendix is identified. Intraperitoneal space: Bilobed mesenteric mass right lower quadrant stable. Vasculature: There is moderate diffuse calcific atherosclerotic plaque. There is no aortic aneurysm. Lymph nodes: There is no adenopathy. Urinary bladder: A balloon tipped bladder catheter is present, the balloon tip lies within the urinary bladder lumen. Bladder calculi noted measuring up to 26 mm. Reproductive: The prostate demonstrates marked nonspecific enlargement. The seminal vesicles are normal. Bones/joints: No acute bony findings are identified. Soft tissues: There is no soft tissue abnormality seen. IMPRESSION: 1. Decreasing subcapsular and perirenal hematoma on the right. 2. Persistent moderate left hydronephrosis despite left nephrostomy tube placement. Correlate with nephrostomy tube output. Consider nephrostogram. 3. No right hydronephrosis. 4. Bilateral intrarenal calculi. Persistent large volume proximal right and left ureteral calculi. 5. Bilobed mesenteric mass unchanged. 6. Cholelithiasis. COMMENTS: Consistent with the [employer]'s Incidental Findings Committee white paper (J Am Stewart Radiol 2018): Any incidental renal lesion less than 1 cm or classified as too small to characterize, or any incidental cystic renal lesion characterized as simple-appearing, is likely benign. No follow-up imaging is recommended for these lesions per consensus recommendations based on imaging criteria.
--- NOTE | 2021-04-18 19:57 | EDM.PDOC ---
ED HPI GENERAL MEDICAL PROBLEM - General Chief Complaint: Genitourinary Problem Stated Complaint: CATH Time Seen by Provider: 04/18/21 15:00 - History of Present Illness INITIAL COMMENTS - FREE TEXT/NARRATIVE: Ramin is a 66-year-old man who was again back with difficulty with his Denney catheter. He has bilateral severe nephrolithiasis, and has had to have 2 nephrostomy tubes placed. He has been to the ER on 4 occasions over the last 2 days with either a plugged Denney catheter, or symptoms of UTI. Tonight, he comes back in with his Denney catheter still in place, but is unable to urinate. He is complaining of severe pain. No further fevers or chills, no nausea or vomiting Bladder Pain Score (Numeric/FACES): 8 - Related Data Allergies Allergy/AdvReac Type Severity Reaction Status Date / Time No Known Allergies Allergy Verified 04/18/21 15:52 Home Meds: Home Meds amLODIPine [Norvasc] 10 mg PO DAILY 04/16/21 [History] Cefdinir [Omnicef] 300 mg PO BID 7 Days #14 cap 04/17/21 [Rx] Phenazopyridine HCl [Pyridium] 200 mg PO DAILY PRN #21 tablet 04/17/21 [Rx] Tamsulosin [Tamsulosin 24 Hr] 0.4 mg PO DAILY #14 cap.er 04/17/21 [Rx] Past Medical History - Past Health History Medical/Surgical History: Denies Medical/Surgical History Cardiovascular History: Reports: Hypertension Genitourinary History: Reports: Hydronephrosis, Renal Calculus - Past Surgical History Male Surgical History: Reports: Renal Calculus, Other (See Below) Other Male Surgeries/Procedures: BL nephrostomy tubes Social & Family History - Family History Family Medical History: No Pertinent Family History - Tobacco Use Tobacco Use Status *Q: Never Tobacco User - Caffeine Use Caffeine Use: Reports: None - Recreational Drug Use Recreational Drug Use: No ED ROS GENERAL - Review of Systems Review Of Systems: Comprehensive ROS is negative, except as noted in HPI. ED EXAM, RENAL/ - Physical Exam Exam: See Below Text/Narrative:: General: Ramin is a 66-year-old man in no acute distress Oropharynx is clear, mucous membranes are moist The current Denney catheter was removed, and a three-way irrigating catheter was placed. Shortly after a very small amount of irrigation was introduced, he started to have significant urine return. He had a total of 2000 mL return back. There was significant amount of debris and small blood clots present in the urine in the bag. He had a complete relief from his pain and symptoms after this was occurred Course - Vital Signs Last Recorded V/S: Last Vital Signs Temp 96.0 F L 04/18/21 15:52 Pulse 131 H 04/18/21 15:52 Resp 24 H 04/18/21 15:52 BP 125/99 H 04/18/21 15:52 Pulse Ox 100 04/18/21 15:52 - Orders/Labs/Meds Labs: Laboratory Tests 04/18/21 04/18/21 Range/Units 16:07 16:07 WBC 10.0 (5.0-10.0) 10^3/uL RBC 4.40 L (4.6-6.2) 10^6/uL Hgb 13.0 L (14.0-18.0) g/dL Hct 38.1 L (40.0-54.0) % MCV 86.6 (80-100) fL MCH 29.5 (27.0-34.0) pg MCHC 34.1 (33.0-35.0) g/dL Plt Count 366 (150-450) 10^3/uL Neut % (Auto) 77.4 H (42.2-75.2) % Lymph % (Auto) 11.7 L (20.5-50.1) % Glenn % (Auto) 10.4 H (2-8) % Eos % (Auto) 0.3 L (1.0-3.0) % Baso % (Auto) 0.2 (0.0-1.0) % Sodium 133 L (136-145) mmol/L Potassium 3.0 L (3.5-5.1) mmol/L Chloride 97 L (98-107) mmol/L Carbon Dioxide 20 L (21-32) mmol/L Anion Gap 19.0 H (7-13) mEq/L BUN 19 H (7-18) mg/dL Creatinine 2.09 H (0.70-1.30) mg/dL Est Cr Clr Drug Dosing 43.84 mL/min Estimated GFR (MDRD) 32 Glucose 148 H (70-99) mg/dL Calcium 11.2 H (8.5-10.1) mg/dL Meds: Medications Discontinued Medications Generic Name Dose Route Start Last Admin Trade Name Yuliana PRN Reason Stop Dose Admin Hydromorphone HCl 1 mg 04/18/21 15:57 04/18/21 16:20 Hydromorphone 1 Mg/Ml Syringe IVPUSH 04/18/21 15:58 1 mg ONETIME ONE Administration Lactated Ringer's 1,000 mls @ 999 mls/hr 04/18/21 15:56 04/18/21 16:20 Ringers, Lactated IV 04/18/21 16:56 Not Given .BOLUS ONE Ceftriaxone Sodium 1 gm/ 50 mls @ 100 mls/hr 04/18/21 15:57 04/18/21 16:20 Sodium Chloride IV 04/18/21 16:26 100 mls/hr ONETIME ONE Administration Sodium Chloride 1,000 mls @ 999 mls/hr 04/18/21 16:21 04/18/21 16:24 Normal Saline IV 04/18/21 17:21 999 mls/hr .BOLUS ONE Administration Lidocaine HCl 10 ml 04/18/21 16:59 04/18/21 17:20 Lidocaine 2% Jelly 10 Ml Urojet MUCMEM 04/18/21 17:00 10 ml ONETIME ONE Administration Lidocaine HCl Confirm 04/18/21 17:00 04/18/21 20:05 Lidocaine 2% Jelly 10 Ml Urojet Administered 04/18/21 17:01 Not Given Dose 10 ml .ROUTE .STK-MED ONE Departure - Departure Time of Disposition: 19:55 Disposition: Home, Self-Care 01 Clinical Impression: Nephrostomy status, Kidney stone UTI (urinary tract infection) Qualifiers: Urinary tract infection type: site unspecified Hematuria presence: with hematuria Qualified Code(s): N39.0 - Urinary tract infection, site not specified - Discharge Information *PRESCRIPTION DRUG MONITORING PROGRAM REVIEWED*: Not Applicable *COPY OF PRESCRIPTION DRUG MONITORING REPORT IN PATIENT IVONNE: Not Applicable Instructions: Urinary Tract Infection, Adult Referrals: PCP,None [Primary Care Provider] - Forms: ED Department Discharge Sepsis Event Note (ED) - Evaluation Sepsis Screening Result: No Definite Risk - Problem List & Annotations (1) UTI (urinary tract infection) SNOMED Code(s): 58437286 Code(s): N39.0 - URINARY TRACT INFECTION, SITE NOT SPECIFIED Status: Acute Qualifiers: Urinary tract infection type: site unspecified Hematuria presence: with hematuria Qualified Code(s): N39.0 - Urinary tract infection, site not specified; R31.9 - Hematuria, unspecified (2) Nephrostomy status SNOMED Code(s): 155014722, 159511511 Code(s): Z93.6 - OTHER ARTIFICIAL OPENINGS OF URINARY TRACT STATUS Status: Acute - Problem List Review Problem List Initiated/Reviewed/Updated: Yes - Assessment/Plan Assessment:: 1. 66-year-old man with recurrent issues secondary to severe nephrolithiasis disease Plan: 1. He has an appointment with a primary physician tomorrow morning. I am hopeful that they will be able to get a full management plan for him as he has been struggling over the last 3 to 4 days. 2. He will continue the Omnicef, 300 mg twice daily as prescribed
== END 2021-04-18 21:28 | disposition home or self-care (01) ==
LOC: DL.ED 14:01
DX: N20.0 Calculus of kidney (principal); N39.0 Urinary tract infection, site not specified; I10 Essential (primary) hypertension; Z93.6 Other artificial openings of urinary tract status
CPT/HCPCS: 36415; 51702; 74176; 80048; 85025; 96365; 96375; 99283; 99284-25; J0696; J1170; J7030

== ENCOUNTER 2021-04-23 17:11 | Emergency (ER) | payer BC ==
[2021-04-23] MEDS ORDERED: Lidocaine 2% Jelly 10 ML Urojet MUCMEM ONE (18:42)
--- NOTE | 2021-04-23 18:45 | EDM.PDOC ---
<GabrieleedgardoKaren - Last Filed: 04/24/21 06:47> ED HPI GENERAL MEDICAL PROBLEM - General Chief Complaint: Genitourinary Problem Stated Complaint: CHATHETER LEAKING Time Seen by Provider: 04/23/21 18:39 - Related Data Allergies Allergy/AdvReac Type Severity Reaction Status Date / Time No Known Allergies Allergy Verified 04/18/21 15:52 Home Meds: Home Meds amLODIPine [Norvasc] 10 mg PO DAILY 04/16/21 [History] Cefdinir [Omnicef] 300 mg PO BID 7 Days #14 cap 04/17/21 [Rx] Phenazopyridine HCl [Pyridium] 200 mg PO DAILY PRN #21 tablet 04/17/21 [Rx] Tamsulosin [Tamsulosin 24 Hr] 0.4 mg PO DAILY #14 cap.er 04/17/21 [Rx] Departure - Departure Time of Disposition: 19:35 Disposition: Home, Self-Care 01 Clinical Impression: Bilateral kidney stones, Bladder stones Obstruction of Denney catheter Qualifiers: Encounter type: initial encounter Qualified Code(s): T83.091A - Other mechanical complication of indwelling urethral catheter, initial encounter - Discharge Information Referrals: PCP,None [Primary Care Provider] - Forms: ED Department Discharge Additional Instructions: 1.) Continue with previous care plan, including surgery on Monday, April 27. 2.) Drink plenty of water to stay hydrated. 3.) Take a stool softener daily while taking narcotic pain medication. <Sanna Garnica - Last Filed: 04/24/21 09:02> ED HPI GENERAL MEDICAL PROBLEM - General Source of Information: Reports: Patient, Family (), RN, RN Notes Reviewed History Limitations: Reports: No Limitations - History of Present Illness INITIAL COMMENTS - FREE TEXT/NARRATIVE: Ramin is a 66 y/o male with history of bilateral renal stones and bladder stones who presents to the ED via personal vehicle with complaints of leaking three-way catheter. The patient will undergo surgery for his renal stones in five days, via Dr. Parekh, urologist at [facility] in [place]. He denies fever, shaking chills, palpitations, nausea, vomiting, or diarrhea. Past Medical History - Past Health History Medical/Surgical History: Denies Medical/Surgical History Cardiovascular History: Reports: Hypertension Genitourinary History: Reports: Hydronephrosis, Renal Calculus - Past Surgical History Male Surgical History: Reports: Renal Calculus, Other (See Below) Other Male Surgeries/Procedures: BL nephrostomy tubes Social & Family History - Family History Family Medical History: No Pertinent Family History - Tobacco Use Tobacco Use Status *Q: Never Tobacco User - Caffeine Use Caffeine Use: Reports: Soda - Recreational Drug Use Recreational Drug Use: No ED ROS GENERAL - Review of Systems Review Of Systems: Comprehensive ROS is negative, except as noted in HPI. ED EXAM, RENAL/ - Physical Exam Exam: See Below Exam Limited By: No Limitations General Appearance: Alert, No Apparent Distress Eye Exam: Bilateral Eye: EOMI, Normal Inspection, PERRL (3mm) Ears: Normal External Exam, Hearing Grossly Normal Nose: Normal Inspection, Normal Mucosa, No Blood Throat/Mouth: Normal Inspection, Normal Lips, Normal Teeth, Normal Gums, Normal Oropharynx, Normal Voice, No Airway Compromise Head: Atraumatic, Normocephalic Neck: Normal Inspection, Supple, Non-Tender, Full Range of Motion Respiratory/Chest: No Respiratory Distress, Lungs Clear, Normal Breath Sounds, No Accessory Muscle Use, Chest Non-Tender Cardiovascular: Normal Peripheral Pulses, Regular Rate, Rhythm, No Edema, No Gallop, No JVD, No Murmur, No Rub GI/Abdominal: Normal Bowel Sounds, Soft, Non-Tender, No Distention, No Abnormal Bruit, No Mass, Pelvis Stable (Male) Exam: Circumcised, Other (Three-way catheter in place, leaking). No: Penile Lesions Back Exam: Normal Inspection, Full Range of Motion. No: CVA Tenderness (L), CVA Tenderness (R) Extremities: Normal Inspection, Normal Range of Motion, Non-Tender, Normal Capillary Refill, No Pedal Edema Neurological: Alert, Oriented, CN II-XII Intact, Normal Cognition, Normal Gait, No Motor/Sensory Deficits Psychiatric: Normal Affect, Normal Mood Skin Exam: Warm, Dry, Intact, Normal Color, No Rash. No: Cyanosis, Erythema, Jaundice, Mottled, Pallor, Petechiae Course - Vital Signs Last Recorded V/S: Last Vital Signs Temp 97.3 F 04/23/21 18:36 Pulse 121 H 04/23/21 18:36 Resp 20 04/23/21 18:36 BP 163/92 H 04/23/21 18:36 Pulse Ox 94 L 04/23/21 18:36 - Orders/Labs/Meds Orders: Active Orders 24 hr Category Date Time Status Denney Catheter Insertion [Insert Urinary Catheter] [OM. Care 04/23/21 18:45 Ordered PC] Q24H Meds: Medications Discontinued Medications Generic Name Dose Route Start Last Admin Trade Name Freq PRN Reason Stop Dose Admin Lidocaine HCl 10 ml 04/23/21 18:42 04/23/21 19:11 Lidocaine 2% Jelly 10 Ml Urojet MUCMEM 04/23/21 18:43 10 ml ONETIME ONE Administration - Re-Assessments/Exams Free Text/Narrative Re-Assessment/Exam: 04/23/21 Three-way catheter changed without complication. Red flag signs and symptoms which would warrant reevaluation reviewed. Patient verbalized understanding and agreement with the plan of care. Departure - Departure Condition: Good - Discharge Information *PRESCRIPTION DRUG MONITORING PROGRAM REVIEWED*: Not Applicable *COPY OF PRESCRIPTION DRUG MONITORING REPORT IN PATIENT IVONNE: Not Applicable Sepsis Event Note (ED) - Evaluation Sepsis Screening Result: No Definite Risk - My Orders Last 24 Hours: My Active Orders 04/23/21 18:45 Denney Catheter Insertion [Insert Urinary Catheter] [OM.PC] Q24H - Assessment/Plan Last 24 Hours: My Active Orders 04/23/21 18:45 Denney Catheter Insertion [Insert Urinary Catheter] [OM.PC] Q24H
== END 2021-04-23 19:35 | disposition home or self-care (01) ==
LOC: DL.ED 17:11
DX: T83.091A Other mechanical complication of indwelling urethral catheter, initial encounter (principal)
CPT/HCPCS: 51702; 99283; 99283-25

== ENCOUNTER 2021-04-28 22:14 | Emergency (ER) | payer BC ==
[2021-04-28] MEDS ORDERED: Lidocaine 2% Jelly 10 ML Urojet MUCMEM ONE (22:55)
--- NOTE | 2021-04-28 23:32 | EDM.PDOC ---
ED HPI GENERAL MEDICAL PROBLEM - General Chief Complaint: Genitourinary Problem Stated Complaint: CATHYTOR Time Seen by Provider: 04/28/21 22:30 Source of Information: Reports: Patient, Family History Limitations: Reports: No Limitations - History of Present Illness INITIAL COMMENTS - FREE TEXT/NARRATIVE: ED with c/o catheter not draining. Recent lithotripsy for large calculi d ischarged from [employer] around noon. Irrigated twice at home. No nausea or vomiting. - Related Data Allergies Allergy/AdvReac Type Severity Reaction Status Date / Time No Known Allergies Allergy Verified 04/29/21 00:07 Home Meds: Home Meds amLODIPine [Norvasc] 10 mg PO DAILY 04/16/21 [History] Phenazopyridine HCl [Pyridium] 200 mg PO DAILY PRN #21 tablet 04/17/21 [Rx] Tamsulosin [Tamsulosin 24 Hr] 0.4 mg PO DAILY #14 cap.er 04/17/21 [Rx] Acetaminophen/oxyCODONE [Percocet 325-5 MG] 1 tab PO Q6HR PRN 04/29/21 [History] Past Medical History - Past Health History Medical/Surgical History: Denies Medical/Surgical History Cardiovascular History: Reports: Hypertension Genitourinary History: Reports: BPH, Hydronephrosis, Renal Calculus, Other (See Below) Other Genitourinary History: Indwelling catheter 04/14/2021 - Past Surgical History Male Surgical History: Reports: Renal Calculus, Other (See Below) Other Male Surgeries/Procedures: BL nephrostomy tubes Social & Family History - Family History Family Medical History: No Pertinent Family History - Tobacco Use Tobacco Use Status *Q: Never Tobacco User Second Hand Smoke Exposure: No - Caffeine Use Caffeine Use: Reports: None - Recreational Drug Use Recreational Drug Use: No ED ROS GENERAL - Review of Systems Review Of Systems: Comprehensive ROS is negative, except as noted in HPI. ED EXAM, RENAL/ - Physical Exam Exam: See Below Exam Limited By: No Limitations General Appearance: Alert, Anxious, Mild Distress Eye Exam: Bilateral Eye: EOMI Ears: Normal External Exam Nose: Normal Inspection Throat/Mouth: Normal Inspection Respiratory/Chest: No Respiratory Distress, Lungs Clear Cardiovascular: Regular Rate, Rhythm GI/Abdominal: Normal Bowel Sounds, Soft (Male) Exam: Other (Denney, concentrated urine with dark tea tinged urine few clots in tubing) Course - Vital Signs Last Recorded V/S: Last Vital Signs Temp 98.6 F 04/28/21 22:30 Pulse 113 H 04/28/21 22:30 Resp 18 04/28/21 22:30 BP 132/83 04/28/21 22:30 Pulse Ox 97 04/28/21 22:30 - Orders/Labs/Meds Meds: Medications Discontinued Medications Generic Name Dose Route Start Last Admin Trade Name Yuliana PRN Reason Stop Dose Admin Lidocaine HCl 10 ml 04/28/21 22:55 04/28/21 23:04 Lidocaine 2% Jelly 10 Ml Urojet MUCMEM 04/28/21 22:56 10 ml ONETIME ONE Administration - Re-Assessments/Exams Free Text/Narrative Re-Assessment/Exam: Denney replaced, draining urine. Departure - Departure Time of Disposition: 23:30 Disposition: Home, Self-Care 01 Condition: Good Clinical Impression: Urinary catheter complication Qualifiers: Encounter type: initial encounter Qualified Code(s): T83.9XXA - Unspecified complication of genitourinary prosthetic device, implant and graft, initial encounter - Discharge Information *PRESCRIPTION DRUG MONITORING PROGRAM REVIEWED*: No *COPY OF PRESCRIPTION DRUG MONITORING REPORT IN PATIENT IVONNE: No Instructions: Indwelling Urinary Catheter Care, Adult Referrals: PCP,None [Primary Care Provider] - Forms: ED Department Discharge Additional Instructions: increase fluids follow up with urology in am follow up if fever/ chills/ or decreased or no urinary output from catheter continue home medications Sepsis Event Note (ED) - Evaluation Sepsis Screening Result: No Definite Risk
== END 2021-04-28 23:48 | disposition home or self-care (01) ==
LOC: DL.ED 22:14
DX: T83.091A Other mechanical complication of indwelling urethral catheter, initial encounter (principal); I10 Essential (primary) hypertension
CPT/HCPCS: 51702; 99283-25

== ENCOUNTER 2021-05-21 23:18 | Emergency (ER) | payer BC | END 2021-05-21 23:44 | disposition left against medical advice (07) | LOC: DL.ED 23:18 | DX: Z53.21 Procedure and treatment not carried out due to patient leaving prior to being seen by health care provider (principal) ==

== ENCOUNTER 2021-05-22 02:28 | Emergency (ER) | payer BC ==
[2021-05-22] MEDS ORDERED: Acetaminophen/oxyCODONE 325-5 MG Tab PO ONE (02:36)
[2021-05-22] MEDS ORDERED: LORazepam 0.5 MG Tab PO ONE (02:43)
[2021-05-22] MEDS ORDERED: Lidocaine 2% Jelly 10 ML Urojet MUCMEM ONE (02:44)
[2021-05-22] MEDS ORDERED: Ciprofloxacin 500 MG Tab PO ONE (03:23)
[2021-05-22 03:26] LABS: ANION GAP 19.8 mEq/L (7-13)
--- NOTE | 2021-05-22 03:28 | EDM.PDOC ---
ED HPI GENERAL MEDICAL PROBLEM - General Chief Complaint: Genitourinary Problem Stated Complaint: CATHATER PLUGGED PAIN Time Seen by Provider: 05/22/21 03:00 Source of Information: Reports: Patient, RN History Limitations: Reports: No Limitations - History of Present Illness INITIAL COMMENTS - FREE TEXT/NARRATIVE: ED ambulatory with c/o of pain lower abdomen, blood in catheter, feeling pressure, some chills from discomfort, Last pyridium at 8pm, percocet last at noon. Hx renal calculi, enlarged prostate. Saw urology Monday. Prostate surgery scheduled for next week. Has drained catheter bag 3 times today. Last emptied around 8pm , approximately 200ml in bag . No vomiting. Denies constipation. Suprapubic Pain Score (Numeric/FACES): 10 - Related Data Allergies Allergy/AdvReac Type Severity Reaction Status Date / Time No Known Allergies Allergy Verified 04/29/21 00:07 Home Meds: Home Meds amLODIPine [Norvasc] 10 mg PO DAILY 04/16/21 [History] Phenazopyridine HCl [Pyridium] 200 mg PO DAILY PRN #21 tablet 04/17/21 [Rx] Tamsulosin [Tamsulosin 24 Hr] 0.4 mg PO DAILY #14 cap.er 04/17/21 [Rx] Acetaminophen/oxyCODONE [Percocet 325-5 MG] 1 tab PO Q6HR PRN 04/29/21 [History] Past Medical History - Past Health History Medical/Surgical History: Denies Medical/Surgical History HEENT History: Reports: None Cardiovascular History: Reports: Hypertension Respiratory History: Reports: None Gastrointestinal History: Reports: None Genitourinary History: Reports: BPH, Hydronephrosis, Renal Calculus, Other (See Below) Other Genitourinary History: Indwelling catheter 04/14/2021 Musculoskeletal History: Reports: None Neurological History: Reports: None Psychiatric History: Reports: None Endocrine/Metabolic History: Reports: None Hematologic History: Reports: None Immunologic History: Reports: None Oncologic (Cancer) History: Reports: None Dermatologic History: Reports: None - Infectious Disease History Infectious Disease History: Reports: None - Past Surgical History Head Surgeries/Procedures: Reports: None Male Surgical History: Reports: Renal Calculus, Other (See Below) Other Male Surgeries/Procedures: BL nephrostomy tubes Social & Family History - Family History Family Medical History: No Pertinent Family History - Tobacco Use Tobacco Use Status *Q: Never Tobacco User Second Hand Smoke Exposure: No - Caffeine Use Caffeine Use: Reports: None ED ROS GENERAL - Review of Systems Review Of Systems: Comprehensive ROS is negative, except as noted in HPI. ED EXAM, RENAL/ - Physical Exam Exam: See Below Exam Limited By: No Limitations General Appearance: Alert, Anxious, Moderate Distress Eye Exam: Bilateral Eye: EOMI Ears: Normal External Exam Throat/Mouth: Normal Inspection Head: Atraumatic, Normocephalic Respiratory/Chest: No Respiratory Distress, Lungs Clear Cardiovascular: Regular Rate, Rhythm, Tachycardia GI/Abdominal: Normal Bowel Sounds, Soft, Distended. No: Guarding, Rigid (Male) Exam: Other (indwelling rubi) Back Exam: Normal Inspection. No: CVA Tenderness (L), CVA Tenderness (R) Extremities: Pedal Edema (2+) Neurological: Alert, Oriented, Normal Cognition Psychiatric: Anxious Skin Exam: Warm, Dry, Intact, Pallor Course - Vital Signs Last Recorded V/S: Last Vital Signs Temp 96.9 F 05/22/21 03:00 Pulse 115 H 05/22/21 03:00 Resp 16 05/22/21 03:00 BP 123/77 05/22/21 03:00 Pulse Ox 100 05/22/21 03:00 - Orders/Labs/Meds Orders: Active Orders 24 hr Category Date Time Status Insert Urinary Catheter [OM.PC] Q24H Care 05/22/21 03:00 Ordered Urinary Catheter Assessment [RC] ASDIRECTED Care 05/22/21 02:56 Active CULTURE URINE [RM] Stat Lab 05/22/21 02:55 Received Labs: Laboratory Tests 05/22/21 05/22/21 05/22/21 Range/Units 02:55 02:55 02:55 WBC 11.9 H (5.0-10.0) 10^3/uL RBC 4.49 L (4.6-6.2) 10^6/uL Hgb 13.6 L (14.0-18.0) g/dL Hct 40.5 (40.0-54.0) % MCV 90.2 D (80-100) fL MCH 30.3 (27.0-34.0) pg MCHC 33.6 (33.0-35.0) g/dL Plt Count 265 D (150-450) 10^3/uL Neut % (Auto) 85.9 H (42.2-75.2) % Lymph % (Auto) 9.0 L (20.5-50.1) % Cherry % (Auto) 4.6 (2-8) % Eos % (Auto) 0.3 L (1.0-3.0) % Baso % (Auto) 0.2 (0.0-1.0) % Sodium 137 (136-145) mmol/L Potassium 3.8 (3.5-5.1) mmol/L Chloride 103 (98-107) mmol/L Carbon Dioxide 18 L (21-32) mmol/L Anion Gap 19.8 H (7-13) mEq/L BUN 24 H (7-18) mg/dL Creatinine 1.73 H (0.70-1.30) mg/dL Est Cr Clr Drug Dosing 51.56 mL/min Estimated GFR (MDRD) 40 BUN/Creatinine Ratio 13.9 (No establ ref range) Glucose 170 H (70-99) mg/dL Calcium 11.0 H (8.5-10.1) mg/dL Total Bilirubin 0.4 (0.2-1.0) mg/dL AST 16 (15-37) U/L ALT 29 (16-63) U/L Alkaline Phosphatase 95 (46-116) U/L Total Protein 7.2 (6.4-8.2) g/dL Albumin 3.5 (3.4-5.0) g/dL Globulin 3.7 Albumin/Globulin Ratio 0.9 Urine Color Brown (YELLOW) Urine Appearance Cloudy (CLEAR) Urine pH 6.5 (5.0-9.0) Ur Specific Goff 1.025 (1.005-1.030) Urine Protein 100 H (NEGATIVE) Urine Glucose (UA) Negative (NEGATIVE) Urine Ketones Negative (NEGATIVE) Urine Occult Blood Large H (NEGATIVE) Urine Nitrite Negative (NEGATIVE) Urine Bilirubin Negative (NEGATIVE) Urine Urobilinogen 0.2 (0.2-1.0) mg/dL Ur Leukocyte Esterase Moderate H (NEGATIVE) Urine RBC Packed H /HPF Urine WBC Semi-packed H (0-5/HPF) /HPF Ur Epithelial Cells Rare (NOT SEEN) /HPF Urine Bacteria Many H (0-FEW/HPF) /HPF Meds: Medications Discontinued Medications Generic Name Dose Route Start Last Admin Trade Name Freq PRN Reason Stop Dose Admin Ciprofloxacin 500 mg 05/22/21 03:23 Ciprofloxacin 500 Mg Tab PO 05/22/21 03:24 ONETIME ONE Lidocaine HCl 10 ml 05/22/21 02:44 05/22/21 02:52 Lidocaine 2% Jelly 10 Ml Urojet MUCMEM 05/22/21 02:45 10 ml ONETIME ONE Administration Lorazepam 0.5 mg 05/22/21 02:43 05/22/21 02:51 Lorazepam 0.5 Mg Tab PO 05/22/21 02:44 0.5 mg ONETIME ONE Administration Oxycodone/Acetaminophen 1 tab 05/22/21 02:36 05/22/21 02:51 Acetaminophen/Oxycodone 325-5 Mg Tab PO 05/22/21 02:37 1 tab ONETIME ONE Administration Departure - Departure Time of Disposition: 03:25 Disposition: Home, Self-Care 01 Condition: Good Clinical Impression: UTI, Urinary tract infectious disease Obstruction of Rubi catheter Qualifiers: Encounter type: subsequent encounter Qualified Code(s): T83.091D - Other mechanical complication of indwelling urethral catheter, subsequent encounter - Discharge Information *PRESCRIPTION DRUG MONITORING PROGRAM REVIEWED*: No *COPY OF PRESCRIPTION DRUG MONITORING REPORT IN PATIENT IVONNE: No Instructions: Indwelling Urinary Catheter Care, Adult, Urinary Tract Infection, Adult Forms: ED Department Discharge Additional Instructions: Increase fluids [id number] twice daily Follow up with urology Monday, at least phone consult to update continue home medications Sepsis Event Note (ED) - Evaluation Sepsis Screening Result: No Definite Risk - Focused Exam Vital Signs: Vital Signs Temp Pulse Resp BP Pulse Ox 05/22/21 03:00 96.9 F 115 H 16 123/77 100 - My Orders Last 24 Hours: My Active Orders 05/22/21 02:55 CULTURE URINE [RM] Stat 05/22/21 02:56 Urinary Catheter Assessment [RC] ASDIRECTED 05/22/21 03:00 Insert Urinary Catheter [OM.PC] Q24H - Assessment/Plan Last 24 Hours: My Active Orders 05/22/21 02:55 CULTURE URINE [RM] Stat 05/22/21 02:56 Urinary Catheter Assessment [RC] ASDIRECTED 05/22/21 03:00 Insert Urinary Catheter [OM.PC] Q24H
== END 2021-05-22 03:49 | disposition home or self-care (01) ==
LOC: DL.ED 02:28
DX: T83.091D Other mechanical complication of indwelling urethral catheter, subsequent encounter (principal); N39.0 Urinary tract infection, site not specified; I10 Essential (primary) hypertension
CPT/HCPCS: 36415; 51702; 80053; 81001; 85025; 87086; 87088; 87186; 99283; 99284; A9270

== ENCOUNTER 2024-10-31 06:16 | Day surgery (SDC) | payer MEDICARE ==
[2024-10-31] MEDS: Dextrose 5%-0.45% NaCl 1,000 ML IV SCH (06:44)
[2024-10-31] MEDS: fentaNYL 100 MCG/2 ML SDV IV ONE ×2 (07:28→07:29)
[2024-10-31] MEDS: Midazolam 1 MG/ML 2 ML SDV IV ONE ×2 (07:29→07:30)
== END 2024-10-31 09:05 | disposition home or self-care (01) ==
LOC: DL.ENDO 06:16
PROVIDERS: ATTEND Internal Medicine Gastroenterology
DX: K29.51 Unspecified chronic gastritis with bleeding (principal); B96.81 Helicobacter pylori [H. pylori] as the cause of diseases classified elsewhere; K29.81 Duodenitis with bleeding; K31.89 Other diseases of stomach and duodenum; K31.A0 Gastric intestinal metaplasia, unspecified; I10 Essential (primary) hypertension; D3A.8 Other benign neuroendocrine tumors; E66.812 Obesity, class 2; Z68.38 Body mass index [BMI] 38.0-38.9, adult; Z87.891 Personal history of nicotine dependence; Z79.899 Other long term (current) drug therapy
CPT/HCPCS: 43239; J2250; J3010; J7799; 88305; 88342

== ENCOUNTER 2024-11-01 05:24 | Day surgery (SDC) | payer MEDICARE ==
[~2024-11-01 05:24] MED LIST: Midazolam 1 MG/ML 2 ML SDV IV ONE; Midazolam 1 MG/ML 2 ML SDV ONE; fentaNYL 100 MCG/2 ML SDV IV ONE; fentaNYL 100 MCG/2 ML SDV ONE
[2024-11-01] MEDS: Dextrose 5%-0.45% NaCl 1,000 ML IV SCH (05:48)
[2024-11-01] MEDS ORDERED: Midazolam 1 MG/ML 2 ML SDV IV ONE (06:17)
[2024-11-01] MEDS ORDERED: fentaNYL 100 MCG/2 ML SDV IV ONE (06:17)
[2024-11-01] MEDS ORDERED: Midazolam 1 MG/ML 2 ML SDV ONE (06:17)
[2024-11-01] MEDS ORDERED: fentaNYL 100 MCG/2 ML SDV ONE (06:17)
[2024-11-01] MEDS: fentaNYL 100 MCG/2 ML SDV IV ONE ×2 (06:25→06:26)
[2024-11-01] MEDS: Midazolam 1 MG/ML 2 ML SDV IV ONE ×5 (06:26→06:33)
== END 2024-11-01 08:26 | disposition home or self-care (01) ==
LOC: DL.ENDO 05:24
PROVIDERS: ATTEND Internal Medicine Gastroenterology
DX: K64.8 Other hemorrhoids (principal); Z98.890 Other specified postprocedural states; D64.9 Anemia, unspecified
CPT/HCPCS: 45378; J2250; J3010; J7799

== ENCOUNTER 2025-01-18 10:16 | Emergency (ER) | payer MEDICARE ==
[2025-01-18 11:15] LABS: APPEARANCE,URINE SLIGHTLY CLOUDY (CLEAR); BILIRUBIN,URINE NEGATIVE (NEGATIVE); COLOR,URINE YELLOW (YELLOW); GLUCOSE,URINE NEGATIVE (NEGATIVE); KETONES,URINE NEGATIVE (NEGATIVE); LEUKOCYTE ESTERASE,URINE SMALL (NEGATIVE); NITRITE,URINE NEGATIVE (NEGATIVE); OCCULT BLOOD,URINE SMALL (NEGATIVE); PH,URINE 5.5 (5.0-9.0); PROTEIN,URINE NEGATIVE (NEGATIVE); UROBILINOGEN,URINE 0.2 mg/dL (0.2-1.0)
[2025-01-18 11:32] LABS: BACTERIA,URINE MODERATE /HPF (0-FEW/HPF); EPITHELIAL CELLS,URINE FEW /HPF (NOT SEEN); WBC,URINE >100 /HPF (0-5/HPF)
== END 2025-01-18 11:52 | disposition home or self-care (01) ==
LOC: DL.ED 10:16
DX: N39.0 Urinary tract infection, site not specified (principal); I10 Essential (primary) hypertension; E66.9 Obesity, unspecified; Z79.899 Other long term (current) drug therapy; Z68.38 Body mass index [BMI] 38.0-38.9, adult
CPT/HCPCS: 51702; 81001; 87086; 87088; 87186; 99284

== ENCOUNTER 2025-01-25 06:12 | Emergency (ER) | payer MEDICARE | END 2025-01-25 06:31 | disposition left against medical advice (07) | LOC: DL.ED 06:12 | DX: Z53.21 Procedure and treatment not carried out due to patient leaving prior to being seen by health care provider (principal) ==

== ENCOUNTER 2025-01-26 21:56 | Emergency (ER) | payer MEDICARE | END 2025-01-26 22:30 | disposition left against medical advice (07) | LOC: DL.ED 21:56 | DX: Z53.21 Procedure and treatment not carried out due to patient leaving prior to being seen by health care provider (principal) | CPT/HCPCS: 99282 ==

== ENCOUNTER 2025-02-11 06:20 | Day surgery (SDC) | payer MEDICARE | END 2025-02-11 08:21 | disposition home or self-care (01) | LOC: DL.SDS 06:20 | PROVIDERS: ATTEND Internal Medicine Gastroenterology | DX: K64.8 Other hemorrhoids (principal); K60.40 Rectal fistula, unspecified; D50.8 Other iron deficiency anemias; I10 Essential (primary) hypertension; Z79.899 Other long term (current) drug therapy ==

== ENCOUNTER 2025-02-25 23:08 | Emergency (ER) | payer MEDICARE ==
[2025-02-25 23:55] LABS: APPEARANCE,URINE CLOUDY (CLEAR); BILIRUBIN,URINE NEGATIVE (NEGATIVE); COLOR,URINE RED (YELLOW); GLUCOSE,URINE NEGATIVE (NEGATIVE); KETONES,URINE NEGATIVE (NEGATIVE); LEUKOCYTE ESTERASE,URINE TRACE (NEGATIVE); NITRITE,URINE NEGATIVE (NEGATIVE); OCCULT BLOOD,URINE LARGE (NEGATIVE); PH,URINE 6.5 (5.0-9.0); PROTEIN,URINE >=300 (NEGATIVE); UROBILINOGEN,URINE 0.2 mg/dL (0.2-1.0)
[2025-02-25 23:57] LABS: RBC,URINE PACKED /HPF (0-5)
[2025-02-25 23:58] LABS: BACTERIA,URINE FEW /HPF (0-FEW/HPF); EPITHELIAL CELLS,URINE FEW /HPF (NOT SEEN); WBC,URINE 20-30 /HPF (0-5/HPF)
== END 2025-02-26 00:09 | disposition home or self-care (01) ==
LOC: DL.ED 23:08
DX: R33.9 Retention of urine, unspecified (principal); R31.9 Hematuria, unspecified; I12.9 Hypertensive chronic kidney disease with stage 1 through stage 4 chronic kidney disease, or unspecified chronic kidney disease; E66.9 Obesity, unspecified; N18.9 Chronic kidney disease, unspecified; Z79.899 Other long term (current) drug therapy; Z68.37 Body mass index [BMI] 37.0-37.9, adult
CPT/HCPCS: 51702; 81001; 87086; 87088; 87186; 99284